=== PATIENT | female | born 1955 | race Caucasian/White ===

== ENCOUNTER 2020-09-20 10:30 | Emergency (ER) | payer OTHER ==
[~2020-09-20] VITALS: Ht 167.6 cm; Wt 68.0 kg
[2020-09-20] MEDS ORDERED: MORPHINE SULFATE 4 MG/ML CPJ (NOT FOR IM USE) IV ONE (11:15)
[2020-09-20] MEDS ORDERED: KETOROLAC 30MG/ML VIAL IM ONE (11:15)
[2020-09-20] MEDS ORDERED: ACETAMINOPHEN 325MG TABLET PO ONE (11:15)
[2020-09-20] MEDS ORDERED: CYCLOBENZAPRINE 10MG TABLET PO ONE (11:15)
[2020-09-20] MEDS ORDERED: MORPHINE SULFATE 10 MG/ML CPJ IM NR (11:30)
[2020-09-20 12:30] VITALS: BP 7/73
[2020-09-20] MEDS ORDERED: ONDANSETRON 4MG ODT PO ONE (12:30)
== END 2020-09-20 14:00 | disposition home or self-care (01) ==
LOC: ER 10:45
DX: S03.02XA Dislocation of jaw, left side, initial encounter (principal); X58.XXXA Exposure to other specified factors, initial encounter; Y93.89 Activity, other specified; Y92.89 Other specified places as the place of occurrence of the external cause; Y99.8 Other external cause status; E03.9 Hypothyroidism, unspecified
CPT/HCPCS: 96372; 96374; 99284; J1885; J2270; Q0162